=== PATIENT | female | born 1940 | race Caucasian/White ===

== ENCOUNTER 2017-12-18 05:41 | Day surgery (SDC) | payer OTHER ==
[2017-12-18] MEDS ORDERED: SOD CHLORIDE 0.9% 1,000 ML IV (06:00)
[2017-12-18] MEDS: TROPICAMIDE 1% 3 ML OPH OPER (06:21)
[2017-12-18] MEDS: CYCLOPENTOLATE/PHENYLEPH 2 ML OPH OPER (06:22)
[2017-12-18] MEDS: DICLOFENAC 0.1% 2.5 ML OPH OPER (06:22)
[2017-12-18] MEDS: MOXIFLOXACIN 0.5% 3 ML OPH OPER (06:22)
[2017-12-18] MEDS ORDERED: DEXAMETHASONE 4 MG/ML 1 ML INJ (06:57)
[2017-12-18] MEDS ORDERED: TETRACAINE 0.5% 4 ML OPH (06:57)
[2017-12-18] MEDS ORDERED: GENTAMICIN 80 MG INJ (06:57)
[2017-12-18] MEDS ORDERED: CEFAZOLIN 1 GM INJ (06:57)
[2017-12-18] MEDS ORDERED: LIDOCAINE 2% (SDV) 5 ML INJ (07:27)
[2017-12-18] MEDS ORDERED: PROPOFOL 20 ML (07:27)
[2017-12-18] MEDS ORDERED: OXYCODONE/ACETAMINOPHEN (5/325) TAB PO (07:30)
[2017-12-18] MEDS ORDERED: ONDANSETRON 4 MG INJ IV (07:30)
[2017-12-18] MEDS ORDERED: LABETALOL HCL 20MG INJ IV (07:30)
[2017-12-18] MEDS ORDERED: hydrALAzine 20 MG INJ IV (07:30)
[2017-12-18] MEDS ORDERED: ALBUTEROL 0.083% (NEB) 2.5 MG/3 ML AMP HHN (07:30)
[2017-12-18] MEDS ORDERED: DIPHENHYDRAMINE 50 MG INJ IV (07:30)
[2017-12-18] MEDS ORDERED: ACETAMINOPHEN 1000MG/100ML IV 100 ML IVPB (07:30)
[2017-12-18] MEDS: LIDOCAINE 4% (MPF) 5 ML INJ (07:56)
[2017-12-18] MEDS: GENTAMICIN 80 MG INJ IRR (07:56)
[2017-12-18] MEDS: EPINEPHrine 1 MG INJ (08:06)
[2017-12-18] MEDS: CARBACHOL 0.01% 1.5 ML OPH INJ (08:07)
== END 2017-12-18 09:50 | disposition home or self-care (01) ==
LOC: SDS 05:41
DX: H25.11 Age-related nuclear cataract, right eye (principal); I10 Essential (primary) hypertension; E11.9 Type 2 diabetes mellitus without complications; E78.00 Pure hypercholesterolemia, unspecified
CPT/HCPCS: 66984; 82962